=== PATIENT | female | born 1965 | race Caucasian/White ===

== ENCOUNTER 2016-10-08 10:27 | Inpatient (IN) | payer OTHER ==
[~2016-10-08] VITALS: Ht 157.5 cm; Wt 82.2 kg
[~2016-10-08 10:27] MED LIST: ADVAIR DISKUS1 UNIT INH; ALBUTEROL SULFAT3 M1 INH; AMOXICILLIN500 M3 PO; ANTIVERT 25 MG25 MG PO; ASPIRIN PO; ATORVASTATIN CA40 MG PO; BACTROBAN OINT.30 GM TOP; BENZTROPINE MESY1 MG PO; BUTALBITAL PO; CLONAZEPAM1 MG PO; CLOTRIMAZOLE TR10 MG PO; CYCLOBENZAPRINE5 M1 PO; DEXILANT60 M1 PO; DEXILANT60 MG PO; DICYCLOMINE HCL10 MG PO; ENDOCET 325 MG-1 TA1 PO; FIORINAL 325 M1 CAP PO; FLUOXETINE10 MG PO; FLUOXETINE20 MG PO; GABAPENTIN400 MG PO; LEVOTHYROXIN0.125 M1 PO; LEVOTHYROXINE0.05 M1 PO; LIDEX0.05 %/15 TOP; MOBIC 15MG15 MG PO; NASONEX0.05 MG/Ac INH; NORTRIPTYLINE H10 M1 PO; NORTRIPTYLINE H50 M1 PO; ONDANSETRON HYDR8 MG PO; OXYCODONE-ACETAMINOP PO; PERCOCET 325 MG1 TA2 PO; PERCOCET 325 MG1 TAB PO; PERCOCET 5-3251 EACH PO; PROAIR HFA0.09 MG/Ac INH; PROCHLORPERAZIN10 M1 PO; PROCHLORPERAZIN25 MG PR; RANITIDINE300 MG PO; TIROSINT125 MCG PO; UNITHROID PO; VALTREX1 GM PO; VALTREX500 MG PO; ZOLMITRIPTAN5 MG PO; [UNRECOGNIZED DRUG - OTHER] PO
--- NOTE | 2016-10-08 10:31 | ED PSYCHIATRIC COMPLAINT ---
History of Present Illness General Chief Complaint: Psychiatric Related Complaint Stated Complaint: BIBA FOR PSYCH Source: patient, family Exam Limitations: clinical condition, confusion, physical impairment Vital Signs & Intake/Output Vital Signs & Intake/Output Vital Signs Date Time Temp Pulse Resp B/P Pulse O2 O2 Flow FiO2 Ox Delivery Rate 10/09 2047 97.8 77 138/76 10/08 1901 98.5 76 16 142/88 94 Room Air 10/08 1043 98 10/08 1032 97.8 75 20 140/74 98 Room Air Allergies Coded Allergies: Sulfa (Sulfonamide Antibiotics) (Intermediate, NAUSEA 10/08/16) lithium (TOXICITY 10/08/16) Reconcile Medications Albuterol Sulfate (Proair Hfa) 0.09 MG/Actuation FATOUMATA 2 PUFF INH PRN ASTHMA/ COPD (Reported) Albuterol Sulfate 3 ML NEB 3 ML INH BID ASTHMA/COPD (Reported) Amoxicillin 500 MG TABLET 1 TAB PO TID SINUSITIS Benztropine Mesylate 1 MG TAB 1 TAB PO TID PRN TREMORS (Reported) Clonazepam 1 MG TAB 1 TAB PO PRN ANXIETY (Reported) Clotrimazole 10 MG LY 1 TAB PO 5 TIMES A DAY THRUSH CYCLOBENZAPRINE HCL (Cyclobenzaprine Hydrochloride) 5 MG TAB 1 TAB PO PRN MUSCLE SPASM (Reported) Dexlansoprazole (Dexilant) 60 MG ECC 1 CAP PO BID GERD (Reported) Dicyclomine Hydrochloride (Dicyclomine HCl) 10 MG CAP 1 TAB PO TID GI ( Reported) Fiorinal (Fiorinal 50-325-40 MG Capsule) 1 CAP CAP 1 CAP PO PRN MIGRAINES ( Reported) Fluticasone-Salmeterol (Advair 500-50 Diskus) 1 UNIT UNIT 1 PUFF INH DAILY ASTHMA/COPD (Reported) Gabapentin 400 MG CAP 1 TAB PO TID NEUROPATHY/MIGRAINES (Reported) Levothyroxine Sodium (Unithroid) 0.3 MG TAB 1 TAB PO DAILY THYROID (Reported) Meloxicam (Mobic 15MG) 15 MG TAB 1 TAB PO DAILY PRN PAIN/INFLAMMATION Mupirocin (Bactroban Oint. 2% 30GM) 30 GM ONT 1 WIL TOP TID IMPETIGO apply to affected area(s) NORTRIPTYLINE HCL (Nortriptyline Hydrochloride) 50 MG CAP 1 TAB PO DAILY MIGRAINES (Reported) OXYCODONE HCL/ACETAMINOPHEN (Percocet 5-325 MG Tablet) 325 MG/5 MG TAB 1 TAB PO Q4-6 PRN PRN BREAKTHROUGH PAIN Oxycodone HCl/Acetaminophen (Percocet 5-325 MG Tablet) 1 EACH TABLET 1-2 TAB PO Q6P PRN PAIN OXYCODONE HCL/ACETAMINOPHEN (Percocet 5-325 MG Tablet) 325 MG/5 MG TAB 1-2 TAB PO Q6 PRN pain OXYCODONE HCL/ACETAMINOPHEN (Endocet 5-325 Tablet) 1 TAB TAB 1 TAB PO Q6H PRN PAIN Prochlorperazine 25 MG SUP 1 SUP NE BID N/V (Reported) VALACYCLOVIR HCL (Valtrex) 1 GM TAB 1 TAB PO DAILY HERPES Valacyclovir Hydrochloride (Valtrex) 500 MG TAB 1 TAB PO BID HERPES Zolmitriptan 5 MG TAB 1 TAB PO PRN MIGRAINES (Reported) Triage Nurses Notes Reviewed? yes Onset: Abrupt Duration: unknown duration Timing: unknown HPI: 10/08/16 12 PM I've seen and personally examined the patient. She is a 51-year-old female presents to the emergency department for altered mental status. The patient is exhibiting flight of ideas and is a poor historian. She says she's here for vital signs. She rambles on. She is pleasantly confused. The onset of the symptoms was abrupt, the duration is unknown. The severity is significant as her symptoms required her to come to the emergency department for care. She denies drug use. Labs were ordered. Additional information was requested from collateral sources. Review the nursing note, the patient stated she was knocking on doors to say judee has she was going to visit [facility]. At 3:30 PM the patient was insistent upon leaving. Crisis attempted to evaluate her but she has been noncompliant with having her blood work drawn and is insistent upon leaving and refusing to cooperate with the interview with crisis. The daughter was contacted by crisis as well has the patient's neurologist's office who confirmed inappropriate behavior and that the patient has been acting in a manner that is unsafe. The patient was reevaluated by me at 4 PM. She is awake and alert and oriented have requested that the psychiatrist evaluate her personally. Dr. Vergara and has come down to interview her 4 PM Past History Travel History Traveled to [place] past 21 day No Medical History Any Pertinent Medical History? 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 No Review of Systems Review of Systems Constitutional: Denies: fever. EENTM: Denies: visual changes. Respiratory: Denies: short of breath. Cardiovascular: Denies: chest pain. GI: Denies: abdominal pain. Genitourinary: Reports: no symptoms. Musculoskeletal: Reports: no symptoms. Skin: Reports: no symptoms. Neurological/Psychological: Reports: confusion. Hematologic/Endocrine: Reports: no symptoms. Immunologic/Allergic: Reports: no symptoms. Physical Exam Physical Exam General Appearance: alert, awake, anxious, moderate distress Head: atraumatic, normal appearance Eyes: Bilateral: normal appearance, PERRL, EOMI. Ears, Nose, Throat: normal pharynx, normal ENT inspection Neck: normal inspection, supple Respiratory: normal breath sounds, chest non-tender, no respiratory distress Cardiovascular: regular rate/rhythm Gastrointestinal: soft, non-tender Extremities: normal range of motion Neurological/Psychiatric: awake, agitated, alert, oriented x 3 Appearance/Memory/Insight: disheveled, impaired insight Behavoir/Eye Contact/Speech: uncooperative, compulsive, increased rate of speech Thoughts/Hallucinations: delusions Skin: intact, normal color, warm/dry SAD PERSONS Done? patient not suicidal Progress Differential Diagnosis: drug intoxication, drug overdose, electrolyte abnormality, encephalitis, hypothyroidism, cannabis intoxication Plan of Care: Orders Procedure Date/time Status Regular Diet 10/09 B Active Vital Signs 10/09 2123 Active Inpt Psych Teach/Educate 10/09 2123 Active Nutritional Intake, Monitor 10/09 2123 Active Inpt Psych Auricular Acupunctu 10/09 2123 Active Add-on Test (ER Only) 10/08 1912 Active Patient Data - inpatient psych 10/08 1708 Active Admit to inpatient psych 10/08 1708 Active HUMAN BETA HCG SCREEN 10/08 170 Complete Add-on Test (ER Only) 10/08 1652 Active URINE DRUG SCREEN FOR ER ONLY 10/08 1217 Complete THYROID STIMULATING HORMONE 10/08 121 Complete THYROXINE 10/08 121 Complete ETHANOL 10/08 121 Complete COMPREHENSIVE METABOLIC PANEL 10/08 121 Complete CBC WITHOUT DIFFERENTIAL 10/08 121 Complete ED CRISIS PSYCH CONSULT 10/08 1217 Active Intake & Output 10/08 1110 Active Vital Signs 10/08 UNK Active Nursing Misc 10/08 UNK Active Alternative Nursing Therapy 10/08 UNK Active Activity/Ambulation 10/08 UNK Active Current Medications Sig/Norma Start time Last Medication Dose Stop Time Status Admin Non-Formulary 1 UNIT 1/2H BEFOR/BREAKFAST 10/09 0700 UNVr Medication (NON FORMULARY) Acetaminophen 650 MG Q6P PRN 10/08 1715 AC (Tylenol) Al Hydroxide/Mg 30 ML Q4-6 PRN PRN 10/08 1715 AC Hydroxide (Maalox Plus) Albuterol Sulfate 2 PUF Q6P PRN 10/08 1715 AC (Ventolin) Magnesium Hydroxide 30 ML AT BEDTIME PRN 10/08 1715 AC (Milk Of Magnesia) Laboratory Tests 10/08/16 1913: Total Beta HCG Cancelled 10/08/16 1901: Total Beta HCG Cancelled 10/08/16 1827: Urine Opiates Screen < 100.00, Methadone Screen < 40, Barbiturate Screen 624 H, Ur Phencyclidine Scrn < 6.00, Amphetamines Screen < 100, U Benzodiazepines Scrn < 85, Urine Cocaine Screen < 50, Urine Cannabis Screen > 80.00 H 10/08/16 1704: Anion Gap 13, Estimated GFR > 60, BUN/Creatinine Ratio 21.3, Glucose 96, Calcium 10.5 H, Total Bilirubin 0.8, AST 20, ALT 42, Alkaline Phosphatase 93, Total Protein 8.7 H, Albumin 4.8, Globulin 3.9, Albumin/Globulin Ratio 1.2, TSH 28.500 H, Thyroxine (T4) 10.5, Total Beta HCG NEGATIVE, CBC w Diff NO MAN DIFF REQ, RBC 5.06, MCV 92.3, MCH 30.3, RDW 14.6 H, MPV 8.4, Gran % 64.1, Lymphocytes % 26.8, Monocytes % 7.5, Eosinophils % 1.1, Basophils % 0.5, Absolute Granulocytes 6.7 H, Absolute Lymphocytes 2.8, Absolute Monocytes 0.8 H, Absolute Eosinophils 0.1, Absolute Basophils 0.1, PUBS MCHC 32.8 L, Serum Alcohol < 10.0 Initial ED EKG: none Departure Departure Disposition: STILL A PATIENT Condition: Stable Clinical Impression Primary Impression: Bipolar disorder Secondary Impressions: Cannabis abuse, Hypothyroidism, Psychosis Referrals: PATIENT HAS NO PRIMARY CARE DR (PCP/Family) Departure Forms: Customer Survey General Discharge Information Psych Admission Note Psychiatric Admission: I have seen and evaluated SERGEY PETER. I have also reviewed all the pertinent lab results and diagnostic results. SERGEY PETER will be admitted to our inpatient Psychiatric unit for treatment and care. The patient should have a medical consultation on the inpatient psychiatric unit. CT scan of the head was negative. Critical Care Note Critical Care Note Critical Care Time: 30-74 min
--- NOTE | 2016-10-08 10:41 | NUR ---
PT CHUYITA FROM HOME AFTER SHE WAS FOUND NOCKING ON ALL HER NEIGHBORS DOORS SAYING SHE WAS GOING TO [place]. PT IS ALERT CONFUSED AWARE THAT SHE IS IN THE HOSPITAL. PT TALKING ABOUT ONLY BEING HERE FOR VITALS MUCH ENCOURAGMENT NEEDED TO HAVE PT CHANGE, SECURITY ASSISTING TIBURCIO NUNEZ. PT DENIES ANY MENTAL ILLNESS STATES SHE HASN'T TAKEN ANY MEDS FOR THAT IN MONTHS AND THAT SHE IS ALL CLEARED.
--- NOTE | 2016-10-08 10:44 | NUR ---
PT DENIES SI/HI DRUG USE
--- NOTE | 2016-10-08 11:23 | NUR ---
ASSUMED CARE OF THIS PT FROM [facility]. INTRODUCED SELF TO PT, WHO REQUESTS A CUP OF HOT TEA. THIS RN EXPLAINED THAT NO HOT LIQUIDS ARE ALLOWED. PT THEN REQUESTED A CUP OF COFFEE. PT OFFERS NO REASON WHY SHE IS HERE AT ER. PT STATES SHE SHOULD BE IN [facility].
--- NOTE | 2016-10-08 11:25 | NUR ---
Pt has (1) one belongings bag locked in closet and (1) one valuables bag and (1) Rx bag given to Pod 2 RN.
--- NOTE | 2016-10-08 12:04 | NUR ---
DR FLORES AT [facility]
--- NOTE | 2016-10-08 13:21 | NUR ---
PT'S DAUGHTER, REZA KING, CALLED TO GET INFO ABOUT MOTHER'S CONDITION AND WHY/HOW SHE GOT TO ER. DAUGHTER'S NUMBER IS [phone] AND SHE LIVES IN [place]. PER DAUGHTER, PT HAS BEEN PSYCHOTIC FOR APPROX 6 MONTHS, IS NOT MED COMPLIANT AND HAS A BRAIN TUMOR. PER DAUGHTER, APPROX 2 WEEKS AGO PT WENT TO A HOTEL IN [place] AND EMS WAS CALLED AND SHE WAS TAKEN TO [facility] AND RELEASED. DAUGHTER WOULD LIKE A CALL WITH DISPO/INPATIENT INFO.
--- NOTE | 2016-10-08 14:02 | NUR ---
PT REFUSING TO GO FOR CAT SCAN. LABS ATTEMPTED, BUT PT REFUSED. WILL TRY AGAIN.
--- NOTE | 2016-10-08 14:04 | ED PSY CRISIS COLLATERAL NOTE ---
Collateral Note Collateral Note Family/Inform/Reji Contacts: Demetria [phone] ( daughter) - This teletypewriter operator informed Demetria her mother is refusing lab work and to meet with the social workers for an evaluation. Per daughter, pt has been regressing and decompensating the past 6 mos . She said Pt has not gone to the doctors or taken her prescribed medication for 6 mos. Daughter does not know who she was receiveing tx with. She said she thinks pt meets with Dr. Rodriguez, a neurologist in [place]. Demetria noted she thinks she /herself is conservator of person for pt. Demetria said she need to go to court and will call enrollment coordinator back for more collateral information.
--- NOTE | 2016-10-08 14:26 | NUR ---
UNABLE TO VERIFY HOME MEDS DUE TO CURRENT CIRCUMSTANCES
--- NOTE | 2016-10-08 14:32 | NUR ---
PT MEDICATED WITH ATIVAN 0.5MG AND TYLENOL 650MG PO FOR HEADACHE. PT PRESENTS ANXIOUS AND SAID "I'LL TAKE THEM, WHATEVER WLL GET ME OUT OF HERE".
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
--- NOTE | 2016-10-08 15:57 | NUR ---
Crisis unable to evaluate pt at this time due to pt refusing medical clearance and lab work.
--- NOTE | 2016-10-08 16:30 | NUR ---
DR FRANCO AT BEDSIDE FOR EVAL
--- NOTE | 2016-10-08 17:01 | ED PSYCHIATRIST/APRN CONSULT ---
Psychiatrist/SPRAY I PAINTER ED Consult Assessment and Plan: Case d/w Dr. Stauffer and workers compensation administrator. 51 yo SWF with apparent hx bipolar d/o and possible TBI. Brought to ER after having been found knocking on neighbors' doors. Refused labwork here. Patient is unable to provided a coherent story. States she is fine and wants to leave. Maintains that she had psychiatric treatment in the past but now her problems are medical: thyroid and cholesterol. She states that someone had called the police because she was knocking on her neighbor's door. States she wanted to thank them and to say goodbye, as she was packing her things and moving to [place] and was going to [place]. She is unable to explain why she planned to go to [place], except to say that she has never been there before. Reports plan to see a friend and to go sight-seeing. She is pleasant, superficial and minimizing. 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 Smiles almost constantly and inappropriately. Past psychiatric hx: Outpatient tx at [facility] last summer. Inpatient in [place] in April 2016. Denies suicide attempts. Substance hx: Tobacco 2 packs/week Alcohol none. Past medical MJ. Denies other drugs. Rx: Thyroid medication. Neurontin 400 mg prn Fiorinal prn Past medical marijuana. Allergies: Sulfa, lithium. PMH: Migraines, hyperlipidemia, past prolonged QT, asthma, COPD, HEATH, IBS, gastroparesis, GERD, malabsorption, hiatal hernia, chronic nauea, chronic back pain, fibromyalgia, TMJ, Simone's thyroiditis, bladder sling, D&C, laparscopy. Family psychiatric and substance abuse hx: Uncooperative with questions. Denies family hx of suicides. Social hx: Has a conservator. Lives alone in a studio apartment/senior housing in [place]. Some college education. Has daughters, ages 24 and 28, and a 4 yo grandson. Retired 20 years ago. On disabilty. 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 Denies arrest hx. Mental status examination: Overweight WF in blue paper scrubs, dyed hair is growing out, has bright lipstick on. Sitting on bed in [place]. Calm and polite. Minimizing and evasive with answers. Affect bright/superficial/somewhat bizarre. Mood: "I feel fine, just a little tired of being here all day." Denies feeling depressed. Does feel anxious. Denies feeling hopeless, helpless, worthless or guilty. Denies SI, HI, AH, VH, PI and magical monreal. Thinking seems loose and somewhat vacuous. There are no apparent delusions. Insight and judgment are impaired. Ox3. Sleep good at home. Appetite decreased. Energy fine. IMPRESSION: Bipolar disorder, manic. Patient seems disorganized in her thinking and she apparently was knocking on door(s) in the neighborhood with plan to go to [employer] without apparent justification. Recommend 1) PEC due to grave disabililty and admit to [facility] for observation and treatment. 2) Check thyroid function and lipids. 3) Notify conservator of admission.
--- NOTE | 2016-10-08 17:07 | NUR ---
BLOOD DRAWN AND SENT TO THE LAB ([facility])
[2016-10-08 17:18] LABS: ABSOLUTE BASOPHIL COUNT 0.1 /CUMM (0.0-0.2); ABSOLUTE EOSINOPHIL COUNT 0.1 /CUMM (0.0-0.7); ABSOLUTE GRANULOCYTE CT 6.7 /CUMM (1.4-6.5); ABSOLUTE LYMPH COUNT 2.8 /CUMM (1.2-3.4); ABSOLUTE MONOCYTE COUNT 0.8 /CUMM (0.10-0.60); BASOPHIL % 0.5 % (0.0-2.0); EOSINOPHIL % 1.1 % (0-5); GRANULOCYTE % 64.1 % (42.2-75.2); HEMATOCRIT 46.7 % (37-47); MEAN CORPUSCULAR HGB 30.3 PG (27.0-31.0); MEAN CORPUSCULAR HGB CONC 32.8 G/DL (33.0-37.0); MEAN CORPUSCULAR VOLUME 92.3 FL (81.0-99.0); MEAN PLATELET VOLUME 8.4 FL (7.4-10.4); PLATELET COUNT 373 /CUMM (130-400); RBC DISTRIBUTION WIDTH 14.6 % (11.5-14.5); RED BLOOD CELL CT 5.06 /CUMM (4.20-5.40); WHITE BLOOD CELL COUNT 10.4 /CUMM (4.8-10.8)
--- NOTE | 2016-10-08 17:26 | NUR ---
PT MEDICATED WITH PERCOCET PO FOR HEADACHE AND ATIVAN 2MG IM FOR ANXIETY.
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
--- NOTE | 2016-10-08 18:35 | NUR ---
URINE TRIO SENT TO LAB
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
--- NOTE | 2016-10-08 19:02 | NUR ---
PT SITTING ON BED WITH DAUGHTER REVIEWING HER LAB RESULTS. PT GAVE URINE SAMPLE FOR HCG TEST FOR CAT SCAN. PT'S DAUGHTER IS AWARE PT IS BEING ADMITTED. PT IS LIMIT-TESTING AND CONTINUES TO TRY TO LEAVE AREA. SITTERS AT DOOR FOR SAFETY.
[2016-10-08 20:48] VITALS: BP 138/76
--- NOTE | 2016-10-08 20:54 | CT SCAN REPORT ---
EXAMINATION: CT HEAD WITHOUT CONTRAST CLINICAL INFORMATION: Altered mental status COMPARISON: None. TECHNIQUE: Multidetector CT examination of the head is performed without contrast. DLP: 601 mGy-cm FINDINGS: There is no evidence of a recent intracranial hemorrhage or extra-axial collection. The midline structures are nondisplaced. The ventricles, cisterns, and sulci are within normal limits. There is no evidence of an intra-axial mass. There are no suspicious focal areas of abnormal brain attenuation. The king-white interface is within normal limits. There is no evidence of acute territorial infarct. There is hyperostosis. There is slight thickening of the visualized right maxillary sinus. IMPRESSION: 1. There is no evidence of a recent intracranial hemorrhage. 2. No acute infarct.
--- NOTE | 2016-10-08 21:17 | NUR ---
PT IS SAFELY ON THE UNIT. PT IS MANIC AND CONCERNED WITH HER BELONGINGS. FOCUSED ON HAVING A LOT OF TOWELS EVEN THOUGH SHE IS NOT TAKING A SHOWER RIGHT NOW. VS ARE STABLE. PT SUCCESSFULLY FINISHED INITIAL INTAKE WITH RN ON [facility]. PT IS ORIENTATING TO THE UNIT CURRENTLY. NO THOUGHTS OF HARMING HERSELF.
--- NOTE | 2016-10-08 23:16 | Admission Certification ---
Admission Certification Certification Statement - As attending physician, I certify that at the time of - admission, based on clinical presentation, severity of - symptoms, need for further diagnostic testing and - therapeutic interventions, and risk of adverse outcomes - without in-hospital treatment, in my clinical assessment, - this patient requires an acute hospital stay for a minimum - of two nights or longer. I have also considered psychsocial - factors such as support system, advanced age, financial - issues, cognitive issues, and failed out-patient treatments, - past re-admission history, safety of patient, and lack of - compliance as applicable. Specific rationale supporting this admission is: Bipolar disorder
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
--- NOTE | 2016-10-09 05:43 | NUR ---
PT WAS HYPOMANIC ON ADMISSION AND INTERVIEW. SHE DID SLEEP APPARENTLY WELL FROM 2300 TO 0515. AT 0515 UP AND SOMEWHAT BIZARRE. PT RECEIVED PRN NEURONTIN FOR ANXIETY AND PRN FIORICET FOR QUESTIONABLE MIGRAINE.
[2016-10-09 07:52] VITALS: BP 127/69
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
--- NOTE | 2016-10-09 11:46 | SOCIAL WORKER PROG NOTE PSYCH ---
Social Work Progress Note Progress Note Met with Christen she presents as disheveled, stated "I am blessed, I am chosen..I am much better now, I can come home." Christen is a 51yo , female resides in her own apartment in [place]. She stated she is feeling much better, denied SI/HI, no AH/VH, she presents as religiously preoccupied, repeats 'I am blessed, you are blessed." She was guarded during the session, stating she wants to give the least amout of information. Noted some paranoia. She was pleasant, polite - smiled excessively. She has no insight into what brought her to the hospital. She is very focused on leaving the hospital, wanted to see her records - wants to "write her story." Asked if she would agree to a family meeting with her daughter, Demetria - conservator - she agreed. She did state she smokes Cannibis, and has "been smoking alot more Cannibis lately." She stated she wants to stop smoking Cannibis. She stated she had a Marijuana card but it . She was very guarded about her history ( family and treatment). 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 She is disheveled, did have some lipstick on. Encouraged Christen to attend groups and work with her team prescriber and SHARRON BeltranW regarding her treatment and discharge planning, family meeting.
--- NOTE | 2016-10-09 11:54 | SOCIAL WORKER PROG NOTE PSYCH ---
Social Work Progress Note Progress Note Family meeting arranged with patient's daughter/conservator, Demetria, for Wednesday @2pm. Unable to come in on Wednesday.
[2016-10-09 12:15] VITALS: BP 121/70
--- NOTE | 2016-10-09 13:06 | NUR ---
PT IS OUT IN COMMUNITY KEEPING TO SELF. PT INTERACTS WITH SOME PEERS AND STAFF. PT SPEECH CAN BE DISORGANIZED AT TIMES, RE-INTRODUCING HERSELF TO STAFF MEMBERS. PT ABLE TO ASK DIRECT QUESTIONS. PT MOOD IS STABLE WITH A CONSTRICTED AFFECT. PT IS NOT ATTENDING GROUPS AND HAD TO WALK OUT OF ONE GROUP. PT DENIES SI THOUGHTS.
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
[2016-10-09 15:53] VITALS: BP 146/85
[2016-10-09 19:48] VITALS: BP 146/78
--- NOTE | 2016-10-09 23:10 | NUR ---
PT IS IN MILIEU, INTERACTING A GREAT DEAL WITH STAFF. MOOD IS STABLE, AFFECT APPEARS BRIGHT, COMMUNICATION IS SLIGHTLY DISORGANIZED, HYPERVERBAL, LOUD, AND SOMETIMES PRESSURED, AND APPETITE IS NORMAL. PT DENIES SI AT THIS TIME.
--- NOTE | 2016-10-10 06:16 | NUR ---
PATIENT WAS AWAKE EARLY IN NIGHT BUT APPEARED TO SLEEP MOST OF REST OF NIGHT; DISORGANIZED, CONFUSED WHEN AWAKE, WOULD ONLY TAKE FIORICET PRN ON EVENING SHIFT, REFUSED ALL OTHER MEDICATIONS.
[2016-10-10 07:51] VITALS: BP 128/74
--- NOTE | 2016-10-10 09:26 | NUR ---
PT IS OPPOSITIONAL..DISORGANIZED AND MILDLY DISRUPTIVE. SHE WILL NOT LEAVE THE NURSES DESK AREA AND IS DEMANDING MEDS THAT SHE HAS ALREADY RECEIVED. SHE IS REFUSING TO TAKE A PRN AT THIS TIME. SHE IS RELIGIOUSLY FOCUSED AND DIFFICULT TO REDIRECT AT THIS TIME. SECURITY WILL BE HERE TO SPEAK WITH THE PT
--- NOTE | 2016-10-10 10:23 | NUR ---
DR PIMENTEL NOTIFIED OF PTS AGITATION. HE ORDERED ZYDIS ZYPREXA 10MG PO X1. PT REFUSED. WITH SECURITY PRESENT PT WAS GIVEN ZYPREXA 5MG IM. WILL MONITOR EFFECT
--- NOTE | 2016-10-10 10:55 | NUR ---
PTS CONSERVATOR REZA NOTIFIED OF THE ZYPREZA GIVEN TO PT THIS AM. DAUGHTER IS IN AGREEMENT WITH THE USE OF MEDICATION AT THIS TIME
[2016-10-10 12:14] VITALS: BP 129/77
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
[2016-10-10 16:05] VITALS: BP 137/76
[2016-10-10 19:35] VITALS: BP 122/64
--- NOTE | 2016-10-10 21:07 | NUR ---
PT IS IN MILIEU OFTEN, INTERACTING A GREAT DEAL WITH STAFF. DIFFICULT TO RE-DIRECT, OFTEN STAYING NEAR THE NURSE'S STATION. MOOD IS STABLE, AFFECT IS BRIGHT, COMMUNICATION IS HYPERVERBAL, TANGENTIAL, PRESSURED AT TIMES, AND APPETITE IS NORMAL. PT DENIES SI AT THIS TIME.
--- NOTE | 2016-10-10 21:26 | CP SOUTH PROGRESS NOTE PSYCH ---
Psych (Inpt) Progress Note Progress Note Include the following elements, when applicable: Involvement in the active treatment of the patient with behavioral observations of the patient and the patient's response to the treatment. Review of the ongoing treatment process in the context of the treatment plan. Indication of how multi-disciplinary staff members are carrying out the treatment plan. Plans for future interventions and recommendations for revision of the treatment plan. Liaison with other physicians/providers. Progress Note: PSYCHIATRIST (COVERING) NOTE, 10/10/2016: I am covering this patient today for Issa Cole APRN. I discussed her presentation, minimal progress to date, current mental status and immediate/ short-term plan with staff; she was agitated this morning, escalating to a potentially dangerous degree and unresponsive to several verbal interventions and various attempts to de-escalate and even the presence of security staff. She has not been on any regular anti-psychotic medication thus far and needed such to avoid potential injury to herself or others. Patient was offered Zydis Zyprexa, 10mg PO but refused it; thereafter, she was administered 5mg of I.M. Zyprexa without resistance or uncooperativeness and with some subsequent benefit to her impulse control and organization; she was also later able to get much needed sleep. I have started a regular PRN dose of Zyprexa, 5mg, up to 4 doses a day, but have not yet ordered any regular. We will continue our discussions with the patient tomorrow, 10/11/2016, and try to establish a more trusting relationship with her.
[2016-10-11 08:13] VITALS: BP 132/76
--- NOTE | 2016-10-11 11:07 | NUR ---
Patient is A&O X 3, continue to be selective with medication and group therapies/ activities. Pt report good night sleep and appetite, attends to her personal hygiene, present in the community most lingers in front of the nurses' station. Mood and affect are a bit stable but with intervals of disorganized thoughts and poor interpersonal boundaries. Denies thought of self-harm, AH/VH.
--- NOTE | 2016-10-11 11:56 | NUR ---
PT IS INTRUSIVE WITH STAFF. REFUSING TO LEAVE THE DESK AREA..REPEATING HERSELF OVER AND OVER..TALKING OVER STAFF. SHE IS OFFERED MEDICATION AND SHE IS REFUSING AT THIS TIME.PT SHOWS LITTLE INSIGHT INTO HER ILLNESS..HER BEHAVIOR AND NEED FOR HOSPITALIZATION
[2016-10-11 12:28] VITALS: BP 143/78
[2016-10-11 20:14] VITALS: BP 144/77
--- NOTE | 2016-10-11 21:24 | CP SOUTH PROGRESS NOTE PSYCH ---
Psych (Inpt) Progress Note Progress Note Include the following elements, when applicable: Involvement in the active treatment of the patient with behavioral observations of the patient and the patient's response to the treatment. Review of the ongoing treatment process in the context of the treatment plan. Indication of how multi-disciplinary staff members are carrying out the treatment plan. Plans for future interventions and recommendations for revision of the treatment plan. Liaison with other physicians/providers. Progress Note: PSYCHIATRIST (COVERING) NOTE, 10/11/2016: I discussed this patient's slow progress to date, current mental status with nursing staff and met with her in individual session. She has taken two PRN doses of Zyprexa, 5mg thus far today. During meeting with me patient was labile and mildly elated, pressured in speech, tangential to loose and nonsensical in verbal communications but expressed her own certitude that she is "ready to go home...completely cured..." I tried to reason with her but didn't get very far. When I concluded the interview she kept up her loose and delusional monologue and would not leave the office; eventually, I was compelled to ask for the assistance of staff to escort her back to the unit milieu, and she exited with a manic flourish, arm-in-arm with the the two handsome younger men, obviously interpreting this as special treatment befitting her elated and somewhat hypersexual state; I plan to increase Zyprexa tomorrow to 15mg HS, plus and additional 10mg in PRN Zyprexa.
--- NOTE | 2016-10-11 21:30 | NUR ---
Pt is out in the community disorganized and difficult to redirect. Pt is loud at times. Vital signs are stable appetite is good. Will continue to monitor the pt overnight.
--- NOTE | 2016-10-12 03:36 | NUR ---
SLEPT WELL THIS SHIFT.
[2016-10-12 08:22] VITALS: BP 140/78
[2016-10-12 12:02] VITALS: BP 148/78
--- NOTE | 2016-10-12 13:31 | SOCIAL WORKER TX PLAN PSYCH ---
Treatment Plan - Please Document: - Evidence that there is ongoing collaboration between - the patient and the interdisciplinary team, - including the patient's active participation and - responsibility for engaging in the treatment regimen, - and that the treatment plan is individualized and - relevant to the patient's conditions. - Treatment plan should reflect documentation indicating - that all active therapeutic efforts are included. Strengths/Capabilities: Pt. stated she is "blessed", strong spirituality. Physical Limitations (Interventions): TBI Patient Identified Trmt Goals: " I need to go home." Discharge Plan: IOP Problem/Goals #1 Problem #1: psychosis Goal (Short Term): Lower level of psychic energy and return to normal activity levels. Increase good judgment, stable mood, and goal directed behavior. Reduce agitation, impulsivity, and pressured speech Increase sensitivity to the consequences of behavior and having more realistic expectations. Accomplish controlled behavior, moderated mood, and thought process through psychotherapy and medication. Goal (Combat Systems Engineer): Explore mood state, level of energy, level of control over thoughts, and sleeping pattern. Accomplish mood stability, having slower reaction with anger, less expansive, and being more socially appropriate and sensitive. Interventions: Learn ways to manage medications accordingly and report unusual symptoms to family/treatment provider Modalities: Encourage groups, education on bipolar d/o, provide CBT treatment, family meeting. DSM5/PS Stressors/Medical Prob Diagnosis' (DSM 5, Stressors, Medical): F 31 unspecified schizophrenia Current GAF: 25 Treatment Team - Responsibilities of members of the treatment team include: - Medication Management- MD or PATIENT FINANCIAL REP - Medication Administration and Monitoring- Nurse - Group Therapy- Occupational Therapist - 1:1 Therapy,Disch Planning,family involvement-Health Navigator
--- NOTE | 2016-10-12 13:36 | SOCIAL WORKER PROG NOTE PSYCH ---
Social Work Progress Note Progress Note Patient presents today perseverating about disharging home, paranoid, disorganized and tangential. Patient requested to meet with this comic book writer numerous times this AM and this comic book writer had difficult time re-directing patient when necessary. Patient whispers when she speaks and is very paranoid about other patients hearing our discussion. She appears distracted at times, commenting on my clothing and other nonsensical topics when in the middle of a discussion. Patient is aware that her daughter/ her conservator, is coming in tomorrow for a family meeting at 2pm. Patient is asking to discharge after that meeting and is aware that we need to hear from her daughter before making any discharge plans from the hospital. Patient is very focused on making plans to discharge the hospital and had a difficult time speaking of anything else.
--- NOTE | 2016-10-12 13:56 | NUR ---
PT IS LESS HYPERVERBAL THAN RECENTLY OBSERVED. LESS TIME SPENT AT THE NURSES STATION AND MORE TIME IN HER ROOM. PT TOLD STAFF ABOUT INCREASING AMOUNTS OF PAIN IN HER BACK, LEGS AND KNEES. WHEN PT DOES SPEAK SPEECH IS STILL CONFUSED AND DISORGANIZED. WAS INITIALLY NOT COOPERATING WITH STAFF FOR BLOOD DRAW BUT EVENTUALLY CALMED DOWN.
--- NOTE | 2016-10-12 14:06 | NUR ---
PT DENIES SI AT THIS TIME.
[2016-10-12 14:29] VITALS: BP 147/89
--- NOTE | 2016-10-12 15:35 | CP SOUTH PROGRESS NOTE PSYCH ---
Psych (Inpt) Progress Note Progress Note Include the following elements, when applicable: Involvement in the active treatment of the patient with behavioral observations of the patient and the patient's response to the treatment. Review of the ongoing treatment process in the context of the treatment plan. Indication of how multi-disciplinary staff members are carrying out the treatment plan. Plans for future interventions and recommendations for revision of the treatment plan. Liaison with other physicians/providers. Progress Note: PSYCHIATRIST NOTE, 10/12/2016: I discussed this patient's slow progress to date, current mental status, treatment and discharge planning with staff team today in the daily morning ITTM ; patient has settled down slightly but is still scattered, disorganized pressured and generally more elated than irritable though some irritability shows up when she is not given exactly what she wants, such as immediate discharge; we are planning a family meeting with patient and her daughter (who is patient's Conservator) for tomorrow and will engage in a thorough discussion of psychotropic medication, mood stabilizers in particular. Patient has been taking PRN Zyprexa; I plan to increase regular HS dose to 15mg. Fortunately, she is sleeping better, and this is a positive sign despite patient's persistent manic drive.
[2016-10-12 16:20] VITALS: BP 144/75
[2016-10-12 19:52] VITALS: BP 134/71
--- NOTE | 2016-10-12 20:59 | NUR ---
Patient continues to ruminate around nurses station. Patient is medication compliant. Patient is difficult to redirect, and reorient. Patient repeats phrases and fearful medications will not work. Patient is calmed with reassurance and redirection.
--- NOTE | 2016-10-12 21:17 | NUR ---
PT IS OFTEN NOT COOPERATIVE WITH STAFF, AND NOT COMPLIANT WITH UNIT RULES. PT IS OFTEN BY NURSE'S STATION, AND HAS DIFFICULTY BEING RE-DIRECTED MOST TIMES. PT IS OFTEN IN MILEIU, AND WILL INTERACT WITH PEERS. MOOD IS NOT STABLE, CHANGING FROM VERY EXCITED/BRIGHT TO SAD/TEARFUL THROUGHOUT THE EVENING. AFFECT IS MOSTLY BRIGHT THOUGH HAS DIPPED INTO BEING DEPRESSED DURING THE EVENING, THUS EXPERIENCING A RANGE OF EMOTIONS DURING SHIFT. COMMUNICATION IS OFTEN DISORGANIZED. APPETITE IS NORMAL. PT DENIES SI AT THIS TIME.
[2016-10-13 07:38] VITALS: BP 144/79
[2016-10-13 12:07] VITALS: BP 144/75
--- NOTE | 2016-10-13 14:26 | NUR ---
PT IS OFTEN AT NURSES STATION, HARD TO REDIRECT AWAY. PT BEHAVIOR IS DISORANGZIED AND OFTEN HAS TO ASK A FEW TIMES IN ORDER TO GET PT TO FOLLOW. PT SPEECH IS DISORGANZIED WELL AND WILL OFTEN REPEAT PHRASES OR WORDS. PT MOOD IS STABLE WITH A CONSTRICTED AFFECT. PT COMES TO SOME GROUPS BUT HAS A HARD TIME HANDLING THE GROUP. PT DENIES SI THOUGHTS.
--- NOTE | 2016-10-13 14:54 | CP SOUTH PROGRESS NOTE PSYCH ---
Psych (Inpt) Progress Note Progress Note Include the following elements, when applicable: Involvement in the active treatment of the patient with behavioral observations of the patient and the patient's response to the treatment. Review of the ongoing treatment process in the context of the treatment plan. Indication of how multi-disciplinary staff members are carrying out the treatment plan. Plans for future interventions and recommendations for revision of the treatment plan. Liaison with other physicians/providers. Progress Note: PSYCHIATRIST NOTE (FAMILY MEETING), 10/13/2016: I discussed this patient's very slow progress to date, current mental status, treatment and discharge planning with staff team today in the daily morning ITTM and also Ronel Middleton LCSW, and I met with patient and latter's daughter in a family session (see also Ms. Middleton's progress note of this date). Patient's daughter did not appear to have much background information on her mother's mental illness to share with us; she did say that patient "had been at [facility]" some time in the past. Daughter did assert that her mother had "never been this bad before" recent months; apparently, in the past patient had had manic episodes but without such florid psychotic features; we spoke about current medication therapy, titrating doses of Zyprexa to help control manic psychosis. Daughter had no knowledge as to any other medication(s) patient may have been on in the past, specifically, knew nothing of any previous treatment with mood stabilizer(s). Throughout meeting patient spoke almost constantly and would or could not be quiet even when her daughter was speaking; patient repeated over and over again in a rote/stereotyped fashion that she wanted to leave the hospital immediately and that "the only medicine that helps me is Neurontin..." We agreed to hold another meeting early next week by which time hopefully patient will be better able to participate meaningfully in the discussion. We need to clarify precisely what the "legal" relationship is currently between patient and her daughter; it does not sound as though daughter is patient's formal conservator or even if daughter has been given "power of ip technology transactions attorney;" the latter implied that power of ip technology transactions attorney had been granted to "a stepdaughter." Patient continues to utilize PRN Zyprexa; I plan to increase regular dose tonight from 15mg to 20mg and continue low dose PRN's up to an additional 10mg/day. I would like to consider adding a mood stabilizer in near future but for the present the current anti-psychotic therapy should be most effective in re-establishing patient's rationality.
--- NOTE | 2016-10-13 15:25 | SOCIAL WORKER PROG NOTE PSYCH ---
Social Work Progress Note Progress Note Patient had family meeting today with this fiction writer, Dr. Telles, and patients daughter Demetria. Patient was very disorganized, hyperverbal, and overly focused on discharging the hospital today. Patient perseverating about leaving with her daughter and was unable to focus otherwise. She mentioned experiencing tremors which she believes is related to starting on Zyprexa and is adamant that alls he needs is neurontin. Patients daughter was unable to provide detailed information about patients psych history but reported that patient had previously been at [place]. She reported that she has never seen her mother in a [place] with psychosis but has seen her mother in [place] different times throughout her life. Daughter explained that patient is in the process of getting evicted from her apartment due to smoking marijuana in the apartment which breaks the lease. She believes mother needs to present in court by 10/16, so this fiction writer sent letter to [address] today indicating that patient is in the hospital at present and unable to participate in legal matters at present. I asked for confirmation of letter and to call me once received.
[2016-10-13 16:05] VITALS: BP 147/79
[2016-10-13 19:23] VITALS: BP 135/73
--- NOTE | 2016-10-13 22:05 | NUR ---
PT IS CURRENTLY ON ONE TO [employer] TRYING TO ESCAPE CPS UNIT WHEN DAUGHTER WAS LEAVING. PT WAS UNABLE TO BE REDIRECTED AND SECURITY WAS CALLED TO TRY AND CALM THE PT DOWN. PT IS CURRENTLY STABLE BUT IS VERY UPSET WITH THE FACT THAT SHE WAS UNABLE TO LEAVE AFTER HER FAMILY MEETING TODAY.
--- NOTE | 2016-10-14 05:34 | NUR ---
1:1 MAINTAINED. PT APPEARED TO SLEEP WELL. WHEN AWAKE, PRESSURED SPEECH AND DISORGANIZED THOUGHT HAVE BEEN RELEVANT.
[2016-10-14 07:58] VITALS: BP 131/73
--- NOTE | 2016-10-14 11:39 | SOCIAL WORKER PROG NOTE PSYCH ---
Social Work Progress Note Progress Note Patient continues to present disorganized with loose associations and tangential speech. Patient speaking today with less of a whisper and using her normal voice. Patient continues to perserverate on going home and is speaks about her self in third person. Patient repeatedly stated "Christen Olmos is ready to go home today." Patient randomly will mention "[place], " and " I am preparing a departure to". 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 This medical technical writer attempted to ask to sign [facility] for [facility] where patient was inpatient before. Patient had difficult time focusing and was unable to comprehend clearly what this medical technical writer was asking but did state that she would not be signing any documents for us and was only interested in signing herself out of the hospital. This medical technical writer will attempt to obtain patients signature again once more clear.
[2016-10-14 12:02] VITALS: BP 134/70
--- NOTE | 2016-10-14 12:02 | NUR ---
PT IS MEDICATION COMPLIANT, CALM AND COOPERATIVE HOWEVER DOES BECOME INTRUSIVE AT TIMES D/T POOR BOUNDARIES BUT EASILY REDIRECTED AND WILL ALSO GIGGLE AT TIMES, TEAM DECISION TO DISCONTINUE 1:1 SITTER, PT REMAINS SAFE ON THE UNIT WITH NO ISSUES OR COMPLAINTS REPORTED OR OBSERVED, DISORGANIZED AND SCATTERED, SOCIAL WITH PEERS AND STAFF, MOOD STABLE WITH FULL RANGE/BRIGHT AFFECT.
--- NOTE | 2016-10-14 16:42 | CP SOUTH PROGRESS NOTE PSYCH ---
Psych (Inpt) Progress Note Progress Note Include the following elements, when applicable: Involvement in the active treatment of the patient with behavioral observations of the patient and the patient's response to the treatment. Review of the ongoing treatment process in the context of the treatment plan. Indication of how multi-disciplinary staff members are carrying out the treatment plan. Plans for future interventions and recommendations for revision of the treatment plan. Liaison with other physicians/providers. Progress Note: PSYCHIATRIST NOTE, 10/14/2016: I discussed this patient's slow progress to date, current mental status, treatment and discharge planning with staff team today in the daily morning ITTM and also met with her again myself in individual session. Unfortunately, patient has not shown much increase in rate of clinical improvement since yesterday's family meeting with daughter. Patient continues fixated solely upon leaving the hospital "right now...today...this evening" so she can attend to her affairs; however, she is not even able to articulate one concrete task she must complete "only at home" at this time. Patient is tolerating the upward titration in dose of Zyprexa while continuing to reject addition of [place] or any other mood stabilizer; she is currently free of daytime sedation or significant side effects from increasing anti- psychotic dose. Patient's manic behavior slowly becoming somewhat less disruptive on the unit though she tries to engage staff members with her plans to go home and resists focusing on her current cognitive and functional impairments.
[2016-10-14 19:50] VITALS: BP 143/71
--- NOTE | 2016-10-14 21:48 | NUR ---
PT IS VISIBLE ON UNIT, SOCIAL WITH PEERS AND STAFF. AT TIMES PT CAN BE HYPERVERBAL AND INTRUSIVE BUT RESPONDS WELL TO REDIRECTION. ATTENDED WRAP UP MEETING AND PARTICIPATED. COOPERATIVE AND COMPLIANT WITH STAFF. NO COMPLAINTS OR SI REPORTED. PT HAS A STABLE MOOD AND FULL RANGE AFFECT.
--- NOTE | 2016-10-15 05:49 | NUR ---
PATIENT SLEPT ALL NIGHT.
[2016-10-15 07:52] VITALS: BP 123/70
[2016-10-15 12:25] VITALS: BP 121/64
--- NOTE | 2016-10-15 13:44 | NUR ---
PT IS TAKING HER MEDS AND ATTENDING SOME OF THE GROUPS. SHE REMAINS HYPERRELIGIOUS AND AT TIMES DIFFICULT TO REDIRECT. SHE DENIES ANY THOUGHTS OF SUICIDE OR SELF HARM.PT ASKS OFTEN TO BE DISCHARGED.SHOWS LITTLE INSIGHT INTO HER ILLNESS AT THIS TIME
--- NOTE | 2016-10-15 14:22 | CP SOUTH PROGRESS NOTE PSYCH ---
Psych (Inpt) Progress Note Progress Note Include the following elements, when applicable: Involvement in the active treatment of the patient with behavioral observations of the patient and the patient's response to the treatment. Review of the ongoing treatment process in the context of the treatment plan. Indication of how multi-disciplinary staff members are carrying out the treatment plan. Plans for future interventions and recommendations for revision of the treatment plan. Liaison with other physicians/providers. Progress Note: PSYCHIATRIST NOTE, 10/15/2016: I discussed this patient's slow but so far steady progress to date, current mental status, treatment and discharge planning with staff team today in the daily morning ITTGissel and Ronel Middleton LCSW, and I met together with patient in individual session. Patient is less pressured than yesterday though our "double teaming" her in our session may have some settling effect; it certainly didn't make her more disorganized or pressured. Ms. Middleton had contacted patient's daughter to see if we could set up another family meeting for tomorrow to update her and see if she could reinforce the treatment plan and especially patient remaining in hospital a little longer; however, daughter told us she is working everyday through next Wednesday, so could not make it in again until 10/23/2016. Patient continued her pressured, yet perseverative push for early discharge ( "like right now, Doctor") but was at length able to accept that she really is not quite ready to go home and that the risks of her suffering a full relapse of florid presenting symptoms would be very great. Patient again asked to have Neurontin available to her for multiple complaints, including neuralgia and headaches and since she has not been at all sedated on up to 25mg/day of Zyprexa , I will add a PRN of Neurontin but may need to re-evaluate this if she starts to experience daytime lethargy/sedation. I am also temporarily continuing low dose Ativan which seems to have had some calming effect and no noticeable disinhibiting effect up to total of 2mg/day. We once again spoke with patient about a possible trial on [place] and/or other primary mood stabilizer, but she is still adamant that she won't consider them despite not being able, or willing , to describe any problematic side effects/difficulties she has had on [place] in the past. I plan to increase Zyprexa to total of 30mg HS tonight and discontinue all PRN Zyprexa.
--- NOTE | 2016-10-15 14:28 | IP INCIDENTAL NOTE PSYCH ---
Incidental Note Notation: I was asked to speak with Dr. Hartley in [place], medical laboratory scientist for [place] and we were able to connect this afternoon. Dr. Hartley agrees with likelihood of a bipolar manic primary diagnosis and current treatment; he understands the difficulty we have had in urging patient to try a primary mood stabilizer. After the clinical discussion Dr. Hartley authorized additional inpatient level of care and best wishes for patient's recovery.
--- NOTE | 2016-10-15 14:49 | SOCIAL WORKER PROG NOTE PSYCH ---
Social Work Progress Note Progress Note Patient continues to show improvement in her symptoms. Patient appears more organized, less tangential, less pressured and less loose associations. Met with patient with Dr. Telles today and discussed patients discharge from the hospital. Patient continues to be eager to discharge the hospital and is requesting to leave tomorrow. This automatic typewriter inspector informed patient that if she would like to sign into the hospital voluntarily and can then sign a 3 day paper which would on Wednesday. Patient was informed that at this time we do not feel comfortable with discharge today and most likely not tomorrow but will discuss further tomorrow. We tentatively are planning for discharge on Wednesday at this time. I spoke with patients daughter, Demetria, today who reported that she is unable to come in to the hospital any earlier then next Wednesday due to her work schedule. She confirmed that [facility] did receive my letter regarding patients hospitalization. I informed Demetria of her mothers improvement in the hospital and that we may be discharging her earlier then we had originally anticipated. She was grateful to hear this.
[2016-10-15 16:12] VITALS: BP 141/79
[2016-10-15 19:34] VITALS: BP 131/59
--- NOTE | 2016-10-15 21:36 | NUR ---
PT HAS BEEN ISOLATIVE AND WITHDRAWN, REMAINING IN BED FOR MAJORITY OF EVENING. PT IS NOT SOCIAL SHE HAS BEEN THE PAST COUPLE DAYS. REFUSED WRAP UP MEETING. NO COMPLAINTS OR SI REPORTED. PT HAS A IRRITABLE MOOD AND FLAT AFFECT.
--- NOTE | 2016-10-16 04:43 | NUR ---
SLEPT WELL, OOB X1 0345 C/O SORE THROAT, TYLENOL GIVEN, RETURNED TO SLEEP.
[2016-10-16 08:25] VITALS: BP 132/75
[2016-10-16 12:34] VITALS: BP 120/66
--- NOTE | 2016-10-16 13:51 | NUR ---
PT IS DISORGANIZED AND INVASIVE. WAS SLEEPING IN BED FOR MOST OF THE MORNING SHIFT. WHEN SHE CAME OUT SHE WAS STANDING AROUND THE NURSES STATION DEMANDING MEDICATION. PT WAS TOLD TO WAIT A FEW MOMENTS WHILE THE NURSE WAS WORKING WITH ANOTHER PT AND SHE DID NOT STOP ASKING FOR MEDICATIONS. NOT VERY REDIRECTABLE. TANGENTIAL IN THOUGHT. VAGUE AND SLOW TO RESPOND. VS ARE STABLE AND DENIES ANY SI/HI TO THIS MHW.
--- NOTE | 2016-10-16 14:22 | SOCIAL WORKER PROG NOTE PSYCH ---
Social Work Progress Note Progress Note Patient continues to show some improvement in symptoms. Patient somewhat labile today, crying adn anxious with this field underwriter about new patient on the unit who also resides in patients building. Patient reports feeling uncomfortable sharing in groups in front of her and appears to be experiencing some paranoia related to this patient. Patient contineus to perseverate about discharging but understands that we are not planning on discharging her today and are aiming for Wednesday. This field underwriter attempted to talk about patient starting in IOP once discharged from the hospital and patient stated that she would [place] [facility] This field underwriter contacted them and at this time they are not accepting new patients. In the meantime I have scheduled patient for IOP intake on Wednesday10/20/16 @10am.
--- NOTE | 2016-10-16 16:02 | CP SOUTH PROGRESS NOTE PSYCH ---
Psych (Inpt) Progress Note Progress Note Include the following elements, when applicable: Involvement in the active treatment of the patient with behavioral observations of the patient and the patient's response to the treatment. Review of the ongoing treatment process in the context of the treatment plan. Indication of how multi-disciplinary staff members are carrying out the treatment plan. Plans for future interventions and recommendations for revision of the treatment plan. Liaison with other physicians/providers. Progress Note: PSYCHIATRIST NOTE, 10/16/2016: I discussed this patient's slow but consistent progress to date, current mental status, treatment and discharge planning with staff team today in the daily morning ITTM and also met with her again myself in individual session. Patient was starting to become somewhat sedated on the 30mg/night dose of Zyprexa and only agreed to take 20mg tonight; I agreed with this but also reinstated PRN doses up to an additional 10mg/day. Patient has been utilizing the PRN Neurontin with reported benefit in reduction of nerve pain/neuralgia and as per our agreement I started her on a regular dose of Neurontin throughout the day but discontinued the PRN. I also began a taper of low does Ativan which I hope will help with reducing daytime sedation over the coming weekend. Patient is still hypomanic, pressured, confrontational, argumentative, perseverative but generally able/wiling to compromise and is not belligerent or threatening; she very much would like to discharge on 10/19/2016; I have told her we will re-evaluate her clinical status after the weekend, but she has been on a P.E.C. which also expires early in the week. We would like her to follow up with IOP attendance. Patient is pleased that her TSH has been slowly dropping since admission; we spoke about the correlation between this and her starting to take her supplement on a regular/consistent basis, as is also important with her psychotropic medication. Once again, I brought up the subject of adding a mood- stabilizer, [place] in particular, but patient is still not willing to go on [place], expressing concern about her thyroid function; we discussed the effect of [place] on the latter and the protective effects of Synthroid.
[2016-10-16 19:45] VITALS: BP 140/75
--- NOTE | 2016-10-16 21:47 | NUR ---
Pt is out in the community disorganized but redirectable. Pt is compliant with the staff during gretchen shift. Vital signs are stable no c/o appetite is good. Will continue to monitor the pt overnight.
--- NOTE | 2016-10-16 22:36 | RADIOLOGY REPORT ---
EXAMINATION: ABDOMEN 1 VIEW CLINICAL INFORMATION: Epigastric pain. COMPARISON: 06/06/2014. TECHNIQUE: A supine view of the abdomen is provided. FINDINGS: There are no dilated loops of small bowel. There are no air-fluid levels. There is a moderate amount of stool within the colon. An IUD is in place. The visualized lung bases are clear. The osseous structures are unremarkable. IMPRESSION: No evidence for obstruction. Moderate amount of stool throughout the colon. IUD in place.
[2016-10-17 00:52] LABS: ABSOLUTE BASOPHIL COUNT 0.1 /CUMM (0.0-0.2); ABSOLUTE EOSINOPHIL COUNT 0.2 /CUMM (0.0-0.7); ABSOLUTE GRANULOCYTE CT 4.5 /CUMM (1.4-6.5); ABSOLUTE LYMPH COUNT 2.9 /CUMM (1.2-3.4); ABSOLUTE MONOCYTE COUNT 0.6 /CUMM (0.10-0.60); BASOPHIL % 0.7 % (0.0-2.0); EOSINOPHIL % 1.9 % (0-5); GRANULOCYTE % 54.2 % (42.2-75.2); HEMATOCRIT 37.8 % (37-47); MEAN CORPUSCULAR HGB 30.3 PG (27.0-31.0); MEAN CORPUSCULAR HGB CONC 33.5 G/DL (33.0-37.0); MEAN CORPUSCULAR VOLUME 90.6 FL (81.0-99.0); MEAN PLATELET VOLUME 9.5 FL (7.4-10.4); PLATELET COUNT 202 /CUMM (130-400); RBC DISTRIBUTION WIDTH 14.4 % (11.5-14.5); RED BLOOD CELL CT 4.18 /CUMM (4.20-5.40); WHITE BLOOD CELL COUNT 8.2 /CUMM (4.8-10.8)
[2016-10-17 08:29] VITALS: BP 131/75
[2016-10-17 12:10] VITALS: BP 143/69
--- NOTE | 2016-10-17 12:47 | CP SOUTH PROGRESS NOTE PSYCH ---
Psych (Inpt) Progress Note Progress Note Include the following elements, when applicable: Involvement in the active treatment of the patient with behavioral observations of the patient and the patient's response to the treatment. Review of the ongoing treatment process in the context of the treatment plan. Indication of how multi-disciplinary staff members are carrying out the treatment plan. Plans for future interventions and recommendations for revision of the treatment plan. Liaison with other physicians/providers. Progress Note: Pt very eager to meet with this provider today. Notes that she wants a printed copy of all labs. She was also concerned that abd xray vs US done. Explained with abd xray was appropriate and found moderate amount of stool in colon. She notes that she has been having small bowel movements but not telling staff, "its none of their business," but was willing to start reporting that. Amenable to senna and colace. Pt very focused on discharge Wednesday. Per SW note, this is planned, though not final, with plan to f/u in IOP on Wednesday. Pt amenable to this plan. Otherwise, she reports doing much better though some irritability when speaking with daughter ont he phone one day ago. She denies SI or HI. Current Medications Sig/Norma Start time Last Medication Dose Route Stop Time Status Admin Acetaminophen 650 MG .STK-MED ONE 10/16 1905 DC PO 10/16 1906 Acetaminophen 650 MG Q6P PRN 10/08 1715 AC 10/16 PO 1910 Acetaminophen/ 1 TAB Q4H PRN 10/15 1400 AC 10/17 Butalbital/Caffeine PO 0924 Al Hydroxide/Mg 30 ML Q4-6 PRN PRN 10/08 1715 AC Hydroxide PO Albuterol Sulfate 2 PUF Q6P PRN 10/08 1715 AC INH Docusate Sodium 100 MG BID 10/17 1139 AC PO Gabapentin 300 MG 0800,1300,1700,2200 10/17 0800 AC 10/17 PO 1236 Gabapentin 300 MG Q12P PRN 10/16 2045 AC PO Gabapentin 300 MG ONCE ONE 10/16 2030 DC 10/16 PO 10/16 2030 203 Gabapentin 300 MG Q4H PRN 10/15 1345 DC 10/16 PO 1911 Levothyroxine Sodium 0.15 MG 0700 10/11 0700 AC 10/17 PO 0632 Lorazepam 0.5 MG 0800,1400,2000 10/17 0800 AC 10/17 PO 10/24 0759 0837 Lorazepam 0.5 MG 0800,1300,1700,10/13 1700 DC 10/16 PO 10/20 1459 1909 Magnesium Hydroxide 30 ML AT BEDTIME PRN 10/08 1715 AC PO Nicotine 2 MG Q2 HRS NEEDED PRN 10/09 1500 AC PO Olanzapine 20 MG 10/17 AC PO Olanzapine 2.5 MG Q4P PRN 10/16 2015 AC PO Olanzapine 30 MG 10/15 DC 10/15 PO 2005 Omeprazole 40 MG DAILY AC 10/09 0700 AC 10/17 PO 0632 Polyethylene Glycol 17 GM DAILY PRN 10/17 1145 AC PO Senna 187 MG BID 10/17 1139 AC PO Simethicone 80 MG ONCE ONE 10/16 2199 DC 10/17 PO 10/16 2200 0039 Laboratory Tests 10/17 10/16 10/16 0038 2311 0649 Chemistry Sodium (137 - 145 mmol/L) 134 L Potassium (3.5 - 5.1 mmol/L) 4.2 Chloride (98 - 107 mmol/L) 105 Carbon Dioxide (22 - 30 mmol/L) 23 Anion Gap (5 - 16) 6 BUN (7 - 17 mg/dL) 18 H Creatinine (0.5 - 1.0 mg/dL) 0.8 Estimated GFR (>60 ml/min) > 60 BUN/Creatinine Ratio (7 - 25 %) 22.5 Troponin I (< 0.11 ng/ml) 0.03 TSH (0.270 - 4.200 uIU/mL) 15.600 H Hematology WBC (4.8 - 10.8 /CUMM) 8.2 RBC (4.20 - 5.40 /CUMM) 4.18 L Hgb (12.0 - 16.0 G/DL) 12.6 Hct (37 - 47 %) 37.8 MCV (81.0 - 99.0 FL) 90.6 MCH (27.0 - 31.0 PG) 30.3 RDW (11.5 - 14.5 %) 14.4 Plt Count (130 - 400 /CUMM) 202 MPV (7.4 - 10.4 FL) 9.5 Gran % (42.2 - 75.2 %) 54.2 Lymphocytes % (20.5 - 51.1 %) 35.5 Monocytes % (1.7 - 9.3 %) 7.7 Eosinophils % (0 - 5 %) 1.9 Basophils % (0.0 - 2.0 %) 0.7 Absolute Granulocytes (1.4 - 6.5 /CUMM) 4.5 Absolute Lymphocytes (1.2 - 3.4 /CUMM) 2.9 Absolute Monocytes (0.10 - 0.60 /CUMM) 0.6 Absolute Eosinophils (0.0 - 0.7 /CUMM) 0.2 Absolute Basophils (0.0 - 0.2 /CUMM) 0.1 PUBS MCHC (33.0 - 37.0 G/DL) 33.5 Vital Signs Date Time Temp Pulse Resp B/P Pulse O2 O2 Flow FiO2 Ox Delivery Rate 10/17 1210 76 143/69 10/17 0829 96.7 71 131/75 10/16 2202 Room Air 10/16 1945 97.8 78 140/75 MSE Appears older than stated age. Cooperative behavior, thoug intrusive appropriate eye contact. Increased speech rate and prosody. No psychomotor retardation or agitation. Mood good Affect irritable, pressured, overall appropriate, liable. Linear and goal directed thought process. Denies SI or HI. Does not appear to be responding to internal stimuli. Denies AVHs, paranoia, or delusions. I/J: very limited A/P: Pt with Bipolar disorder with psychotic features with much improved affect state and psychosis though with continued elevated mood, some grandiosity, lability, and irritability. - Pt only interested in taking zyprexa at this time, to continue - Pt may benefit from mood stablizer - Pt wants to meet with first thing wednesday is discuss discharge - Senna/colace order for bowel movements - Otherwise continue current medication regimen
--- NOTE | 2016-10-17 14:17 | NUR ---
PERSEVERATES ON THINGS EVERY NOW AND THEN. THIS MORNING IT WAS LABS. HAVE NOT OBSERVED ANY DELUSIONAL BEHAVIORS. SOMEWHAT TANGENTIAL. IS ORIENTED x3 mOOD IS STABLE, FULL RANGE OF AFFECT. DENIED THOUGHTS OF SELF HARM WHEN ASKED.
[2016-10-17 16:00] VITALS: BP 130/74
--- NOTE | 2016-10-17 21:22 | Event Note ---
Event Note Event Note: I was called for patient complaining of abdominal pain and distension and leg swelling. Subjective: Patient had multiple vague complaints, abdominal pain: epigastric, nonradiating, associated with distension. Gum pain, leg pain and swelling. "my ; egs are hurting so much that I will get cardiovascular problem. what tests are you going to order for me? I need the compression devices on my feet" Objective: Vitals unremarkable. neck supple, no LNpathy, no JVD CVS: s1, s2, regular, no pitting edema on feet RS: clear to ascultate bilaterally Abdo : obese, soft, NT, ND, no g/r. BS+ no focal neuro findings. Plasn: cbs, BMP, troponin, EKG, Xray abdo and semithocone. epigastric pain : gastritis, gas, r/o acs. no e/o heart failure.
--- NOTE | 2016-10-17 21:25 | NUR ---
PT IS STABLE WITH BRIGHT, FULL RANGE OF AFFECT. NAPPING ON AND OFF DURING THE EVENING SHIFT. WHEN SHE IS AWAKE IS OUT IN THE COMMUNITY INTERACTING WITH PEERS/STAFF. APPROPRIATE AND REDIRECTABLE. VS ARE STABLE AND DENIES ANY SI/HI TO THIS MHW.
--- NOTE | 2016-10-18 06:16 | NUR ---
PT APPEARED TO SLEEP WELL. SHE IS NO LONGER ON 1:1.
[2016-10-18 08:21] VITALS: BP 140/85
--- NOTE | 2016-10-18 10:34 | CP SOUTH PROGRESS NOTE PSYCH ---
Psych (Inpt) Progress Note Progress Note Include the following elements, when applicable: Involvement in the active treatment of the patient with behavioral observations of the patient and the patient's response to the treatment. Review of the ongoing treatment process in the context of the treatment plan. Indication of how multi-disciplinary staff members are carrying out the treatment plan. Plans for future interventions and recommendations for revision of the treatment plan. Liaison with other physicians/providers. Progress Note: Pt seen this morning. She notes that she slept very well and drank tea before bed. She used fiorecet one day ago for migraine with good effect. She was very perseverative around discharge Wednesday. Unable to redirect her around this. She then started to say that she wanted to be discharged today. Cooperative when told that would not be possible. Spoke at length about being upset with daughters for not visiting one day ago. Denies SI or HI. Current Medications Sig/Norma Start time Last Medication Dose Route Stop Time Status Admin Acetaminophen 650 MG Q6P PRN 10/08 1715 AC 10/16 PO 1910 Acetaminophen/ 1 TAB Q4H PRN 10/15 1400 AC 10/17 Butalbital/Caffeine PO 2212 Al Hydroxide/Mg 30 ML Q4-6 PRN PRN 10/08 1715 AC Hydroxide PO Albuterol Sulfate 2 PUF Q6P PRN 10/08 1715 AC INH Docusate Sodium 100 MG BID 10/17 1139 AC 10/18 PO 0823 Gabapentin 300 MG 0800,1300,1700,2200 10/17 0800 AC 10/18 PO 0821 Gabapentin 300 MG Q12P PRN 10/16 2045 AC 10/17 PO 2301 Levothyroxine Sodium 0.15 MG 10/11 0700 AC 10/18 PO 0715 Lorazepam 0.5 MG 0800,10/18 0800 AC 10/18 PO 0821 Lorazepam 0.5 MG 0800,1400,10/17 0800 DC 10/17 PO 10/17 2300 2042 Magnesium Hydroxide 30 ML AT BEDTIME PRN 10/08 1715 AC PO Nicotine 2 MG Q2 HRS NEEDED PRN 10/09 1500 AC PO Olanzapine 20 MG 10/17 AC 10/17 PO 2042 Olanzapine 2.5 MG Q4P PRN 10/16 2015 AC PO Omeprazole 40 MG DAILY AC 03/24 0700 AC 10/18 PO 0714 Polyethylene Glycol 17 GM DAILY PRN 10/17 1145 AC PO Senna 187 MG BID 10/17 1139 AC 10/17 PO 3 Laboratory Tests 10/17 10/16 10/16 0038 [id number] Chemistry Sodium (137 - 145 mmol/L) 134 L Potassium (3.5 - 5.1 mmol/L) 4.2 Chloride (98 - 107 mmol/L) 105 Carbon Dioxide (22 - 30 mmol/L) 23 Anion Gap (5 - 16) 6 BUN (7 - 17 mg/dL) 18 H Creatinine (0.5 - 1.0 mg/dL) 0.8 Estimated GFR (>60 ml/min) > 60 BUN/Creatinine Ratio (7 - 25 %) 22.5 Troponin I (< 0.11 ng/ml) 0.03 TSH (0.270 - 4.200 uIU/mL) 15.600 H Hematology WBC (4.8 - 10.8 /CUMM) 8.2 RBC (4.20 - 5.40 /CUMM) 4.18 L Hgb (12.0 - 16.0 G/DL) 12.6 Hct (37 - 47 %) 37.8 MCV (81.0 - 99.0 FL) 90.6 MCH (27.0 - 31.0 PG) 30.3 RDW (11.5 - 14.5 %) 14.4 Plt Count (130 - 400 /CUMM) 202 MPV (7.4 - 10.4 FL) 9.5 Gran % (42.2 - 75.2 %) 54.2 Lymphocytes % (20.5 - 51.1 %) 35.5 Monocytes % (1.7 - 9.3 %) 7.7 Eosinophils % (0 - 5 %) 1.9 Basophils % (0.0 - 2.0 %) 0.7 Absolute Granulocytes (1.4 - 6.5 /CUMM) 4.5 Absolute Lymphocytes (1.2 - 3.4 /CUMM) 2.9 Absolute Monocytes (0.10 - 0.60 /CUMM) 0.6 Absolute Eosinophils (0.0 - 0.7 /CUMM) 0.2 Absolute Basophils (0.0 - 0.2 /CUMM) 0.1 PUBS MCHC (33.0 - 37.0 G/DL) 33.5 Vital Signs Date Time Temp Pulse Resp B/P Pulse O2 O2 Flow FiO2 Ox Delivery Rate 10/18 820 97.4 74 140/85 10/17 1600 80 130/74 10/17 1210 76 143/69 MSE Appears older than stated age. Cooperative behavior, though intrusive appropriate eye contact. Increased speech rate and prosody, very perseverative. No psychomotor retardation or agitation. Mood good Affect irritable, pressured , overall appropriate, liable. Linear and goal directed thought process though quite fixated on discharge. Denies SI or HI. Does not appear to be responding to internal stimuli. Denies AVHs, paranoia, or delusions. I/J: very limited A/P: Pt with Bipolar disorder with psychotic features with much improved affect state and psychosis though with continued elevated mood, some grandiosity, lability, and irritability. - Pt only interested in taking zyprexa at this time, to continue; does not want to be on mood stabilizer, was very adamant about this - Pt wants to meet with Dr. Telles first thing wednesday is discuss discharge - Senna/colace order for bowel movements, pt now having regular bowel movements - Otherwise continue current medication regimen
[2016-10-18 12:17] VITALS: BP 110/64
--- NOTE | 2016-10-18 13:32 | NUR ---
PT IS ISOLATIVE TODAY, DID NOT GO TO [facility] YET DID COME TO [facility] AND PAINTED AND HAD + PARTICIPATION, REPORTED HAVING A SORE THROAT AND PERSISTENT NAGGING HEADACHE TO WHICH SHE RECEIVED PRNS FOR AND RESTED IN BED OFTEN, WHEN ENGAGING IS BRIGHT, MOOD IS STABLE, NO LABILITY NOTED, FULL RANGE, COMPLIANT, PLEASANT AND CALM.
[2016-10-18 15:40] VITALS: BP 121/68
[2016-10-18 20:08] VITALS: BP 139/68
--- NOTE | 2016-10-18 22:19 | NUR ---
PT IS STABLE WITH FULL RANGE OF AFFECT. INTERACTING WITH PEERS/STAFF AND PRESENT IN THE COMMUNITY. APPROPRIATE TO THE UNIT AND ORGANIZED/COHERENT. POLITE, COOPERATIVE AND COMPLIANT. PT REPORTS "WANTING TO GO HOME TOMORROW". VS ARE STABLE AND DENIES ANY SI/HI TO THIS MHW.
--- NOTE | 2016-10-19 07:30 | NUR ---
PATIENT SLEPT ALL NIGHT.
[2016-10-19 07:49] VITALS: BP 134/75
[2016-10-19 12:22] VITALS: BP 117/70
--- NOTE | 2016-10-19 13:09 | NUR ---
PT IS COMPLIANT AND COOPERATIVE. MOOD IS STABLE WITH A EUTHYMIC AFFECT. PT DENIES SI AT THIS TIME, NO COMPLAINTS OFFERED. PT THOUGHT CONTENT APPEARS CLEAR- SPEECH IS ORGANIZED AND COHERENT. NO ACTIVE PSYCHOSIS NOTED. PT HAS BEEN MOSTLY ISOLATIVE IN ROOM; PRESENT AND INTERACTING WITH OTHERS ON UNIT AT TIMES. PT IS ATTENDING SOME GROUPS. VITALS ARE STABLE, APPETITE IS GOOD.
[2016-10-19] MEDS ORDERED: NICORELIEF2 MG PO (13:29)
[2016-10-19] MEDS ORDERED: OLANZAPINE2.5 M1 PO (13:38)
[2016-10-19] MEDS ORDERED: OLANZAPINE10 M1 PO (13:38)
[2016-10-19] MEDS ORDERED: SYNTHROID150 MCG PO (13:38)
--- NOTE | 2016-10-19 13:43 | SOCIAL WORKER PROG NOTE PSYCH ---
Social Work Progress Note Progress Note Patient to discharge the hospital today. Patient presents much more organized, logical and less pressured/tangential today. Patient reports feeling ready to return home and is looking forward to returning home. She contacted her housing this AM and they informed her that she may return there and they will have a meeting regarding the condition of her housing at 4pm today. Patient has agreed to attend IOP at and has intake tomorrow at 11AM. Patient has arranged for [facility] to take her to her intake tomorrow. Patient has agreed to refrain from smoking marijuana and has agreed to continue her medication. Patient reports no desire to continue smoking cigarettes going forward either.
--- NOTE | 2016-10-19 13:58 | NUR ---
PT IS SCHEDULED FOR D/C TODAY TO [facility] [place]. SHE IS CALM AND COOPERATIVE IN HER MOOD AND REPORTS HER THOUGHTS ARE CLEAR AND ORGANIZED. SHE DENIES ANY THOUGHTS OF SUICIDE OR SELF HARM. SHE IS LOOKING FORWARD TO GOING HOME. SHE AGREES TO FOLLOW UP WITH IOP AND HAS HER INTAKE TOMORROW MORNING. PT IS GIVEN EDUCATION ON MANAGING HER MOOD D/O AND ON PREVENTING SUICIDE
--- NOTE | 2016-10-19 14:03 | CP SOUTH PROGRESS NOTE PSYCH ---
Psych (Inpt) Progress Note Progress Note Include the following elements, when applicable: Involvement in the active treatment of the patient with behavioral observations of the patient and the patient's response to the treatment. Review of the ongoing treatment process in the context of the treatment plan. Indication of how multi-disciplinary staff members are carrying out the treatment plan. Plans for future interventions and recommendations for revision of the treatment plan. Liaison with other physicians/providers. Progress Note: PSYCHIATRIST NOTE (DISCHARGE), 10/19/2016: I discussed this patient's significant progress to date, current mental status, treatment and discharge plans with staff team today in the daily morning ITTM and Ronel Middleton LCSW, and I met with patient together in individual session prior to discharging her to follow up in the [facility] where she has an intake scheduled for tomorrow, 10/20/2016, at 10am; she agrees to abstain totally from use of Marijuana throughout her participation in programming at [facility]; this is also a good idea since allegations of her using Marijuana at home have gotten her into some difficulties with (federally- supervised) housing authorities. Patient is currently mildly elevated in mood but not hypomanic, in control of her impulses and shows no current evidence of suicidal or homicidal ideation, plans, intent or impulses and is aware of her safety plan should she ever in future come to believe herself at risk for self- harm. Patient denies any side effects on current medication regimen, is not sedated during the daytime hours and sleeping well at night. Patient is confident she will be able to utilize public transportation to get to and from [facility] and pledges to attend programming there. I called into [facility], [place], [place]., on date of discharge: Zyprexa, 20mg: i tab nightly at HS (20mg/night); #14 with no refill (to clarify thinking) Zyprexa, 2.5mg: i tab PRN racing thoughts/insomnia (2.5mg/day); #14 with no refill (patient currently on 20mg of regular Zyprexa daily, plus up to 2.5mg/day in PRN doses of same) Neurontin, 300mg: i tab 4x/day (1,200mg daily); #56 with no refill (neuropathy /neuralgia) and: levothyroxine, 150mcg daily on empty stomach (thyroid supplement) patient was offered but denied any need for nicotine gum, 2mg OTC to reduce cravings for tobacco/cigarettes; she asserts intention to stop smoking entirely going forward and refuses quitting aids; she wll given an appointment card for the next schedule [facility] on 10/21/2016 and 11/04/2016 at 4pm, facilitated by Kaur Brooks LCSW
--- NOTE | 2016-10-19 14:04 | DISCHARGE SUMMARY REPORT-PSYCH ---
Visit Information Visit Dates/Diagnosis' Admission Date: 10/08/16 Discharge Date: 10/19/16 Reason for Admission: "I am blessed...I am chosen...I am much better now ...I can go home..." Psy Discharge Primary Diag: Bipolar Disorder Hospital Course Significant Lab Findings: glucose = 96; Calcium = 10.5; total protein = 8.7; TSH = 28.500, 20.000, 15.600; free T4 = 1.22, T4 = 10.5; WBC = 10.4, 64.1% gran, 6.7% gran abs; GUERITA = less than 10.0; urine for drugs of abuse--positive for barbiturates (624ng/ml) and cannabis (greater than 80.00ng/ml); for further details of all normal range laboratory data from this admission, see the electronic medical record Course Complications: none Consultations: patient was seen for an admission medical H&P by Carolina Boss M.D., and followed medically during this admission by the hospitalist staff/[facility] medical attending physicians Allergies: Coded Allergies: Sulfa (Sulfonamide Antibiotics) (Intermediate, NAUSEA 10/08/16) lithium (TOXICITY 10/08/16) Hospital Course/TX Response: (see also all initial assessments and daily M.Sia., NATURAL RESOURCES SPECIALIST and ACCOUNT COLLECTOR progress notes from this admission in the electronic medical record) At first, patient intermittently agitated, irritable, hypomanic, escalating to a potentially dangerous degree and completely unresponsive to verbal interventions and various attempts to defuse/de-escalate the situation even in the presence of security staff and eventually, for safety of patient and others, her inability to take oral anti-psychotic medications led to the need to intervene on a few occasions with I.M. medication which was uncomplicated and had good effect. Eventually, patient came to an agreement to take regular oral doses of Zyprexa (the same medication she had been receiving I.M.) and began to get regular sleep for the first time during this admission. We gradually built a more positive relationship with patient who became less insistent upon "immediate" release (without any plan going forward on her part). However, though somewhat more settled, patient remained scattered, disorganized and delusional in thought process and generally more elated than irritable. Dose of Zyprexa was titrated up to 15mg HS. She was noted to perseverate on the issue of discharge and became tangential, disordered and paranoid at times with persistent manic drive. Ronel Middleton LCSW, and I held a family meeting with patient and her daughter; according to the latter though her mother had had previous manic episodes never with the grandiose delusional component prominent during current admission. Patient continued to be resistant to any consideration of going on a mood-stabilizer, even to be able to lower the total daily dose of Zyprexa. Gradually patient became significantly more organized, logical and less tangential/pressured; it was possible to make realistic plans for discharge and aftercare. She agreed to refrain from smoking Marijuana ( which had actually gotten her into difficulties in her federally-supervised housing) and was determined to give up cigarettes though she did not want any aid to smoking cessation (e.g. nicotine patch or gum). At time of discharge, patient was mildly elevated in mood but not irritable or hypomanic, not delusional, showing no evidence of suicidal or homicidal ideation, plans, intent or impulses and was well aware of her safety plan should she at some time in the future come to believe herself at acute risk of harming herself or others. Patient agreed to attend programming in the [facility] health [facility] and promised to abstain from any use of Marijuana during her programming there (and would "consider" abstinence beyond then). Discharge HBIPS - Tobacco Use Treatment Offered Post DC Medications Offered: Refused Tob Medication Tx (intends to stop completely) Post DC Tobacco Treatment Plan: [facility] Appt Date: 10/21/16 - EtOH/Drug Use D/O Treatment Offered Post DC Medications Offered: NA-No EtOH/Drug Use D/O Post DC EtOH/SubAbuse TX Plan: NA-No EtOH/Drug Use D/O Metabolic Screening - Screen if on a Neuroleptic Medication - Metabolic screening should include: - Blood Pressure, BMI, Glucose or Hgb A1c, & a - Lipid profile from within the past 365 days. Metabolic Screening () Not Applicable, patient not on a neuroleptic. OR ([X]) Patient on a neuroleptic(s) . Enter below results for Glucose or Hemoglobin A1C, and lipid panel if obtained during the last 365 days. BMI: 33.100 Blood Pressure: 117/70 Laboratory Results (If applicable): glucose = 96 (on 10/08/2016) cholesterol = 235 triglycerides = 177 HDL = 48 LDL = 152 (all drawn on 10/09/2016) Discharge Instructions General Discharge Information Discharge Medications: Discharge Medications (dose, route, frequency, indications): I called into [facility], [place], [place] on date of discharge: Zyprexa, 20mg: i tab nightly at HS (20mg/night); #14 with no refill (to clarify thinking) Zyprexa, 2.5mg: i tab PRN racing thoughts/insomnia (2.5mg/day); #14 with no refill (patient currently on 20mg of regular Zyprexa daily, plus up to 2.5mg/day in PRN doses of same) Neurontin, 300mg: i tab 4x/day (1,200mg daily); #56 with no refill (neuropathy /neuralgia) and: levothyroxine, 150mcg daily on empty stomach (thyroid supplement) patient was offered but denied any need for nicotine gum, 2mg OTC to reduce cravings for tobacco/cigarettes; she asserts intention to stop smoking entirely going forward and refuses quitting aids; she wll given an appointment card for the next schedule [facility] on 10/21/2016 and 11/04/2016 at 4pm, facilitated by Kaur Brooks LCSW Multiple Neuroleptics: ([X]) Not Applicable OR Document below three failed attempts at monotherapy, or a plan to taper to monotherapy, or augmentation of Clozapine. () Patient's Diet: regular Patient's Activity: without restrictions DC Disposition: to home Recommendations: I would advise continuing discussion with patient of possibly adding mood stabilizing medication to her regimen and then slowly tapering current dose of Zyprexa following an interval of outpatient stabilization. Referred To: Patient was referred directly to intake at [facility] scheduled for 10/20/2016 at 11am. Though she had asserted she was "so through smoking," she was given an appointment card for the next scheduled [facility] on 10/21 and 11/04/2016 at 4pm, facilitated by Kaur Brooks LCSW. Copies To: PORTER ALCARAZ MD, LCSW,CARRI
[2016-10-19] MEDS ORDERED: GABAPENTIN300 M2 PO (14:13)
== END 2016-10-19 14:55 | DRG 885 ==
LOC: ERH 10:27 → ERHI 17:08 → CP SOUTH 17:08
PROVIDERS: Emergency Medicine; Internal Medicine; Student in an Organized Health Care Education/Training Program; ADMIT Psychiatry & Neurology Psychiatry
DX: F31.2 Bipolar disorder, current episode manic severe with psychotic features (principal); E03.9 Hypothyroidism, unspecified
CPT/HCPCS: 36415; 74000; 80307; 81001; 82436; 93005; 93010; G0463; G0480; J1200; J2060; J3490; Q2036